=== PATIENT | male | born 1965 | race Caucasian/White ===

== ENCOUNTER 2020-04-24 13:53 | Observation (INO) ==
[~2020-04-24 13:53] MED LIST: Total Joint Mixture (50 ml) INTRAART ONE
[2020-04-24] MEDS ORDERED: CeFAZolin Syr 2,000MG/20 ML 2,000 MG/20 ML SYRINGE IVPB ONE (14:32)
[2020-04-24] MEDS ORDERED: Ringers Solution, Lactated 1,000 ML IVC SCH ×2 (14:45→22:09)
[2020-04-24] MEDS ORDERED: Famotidine 20 MG/2 ML VIAL IVP ONE (16:11)
[2020-04-24] MEDS ORDERED: Acetaminophen IV 1,000 MG/100 ML BAG IVPB ONE (16:11)
[2020-04-24] MEDS ORDERED: *HR* HYDROmorphone PF 0.5 MG/0.5 ML SYRINGE IVP PRN (17:28)
[2020-04-24] MEDS ORDERED: Ondansetron 4 MG/2 ML VIAL IVP ONE (17:28)
[2020-04-24] MEDS ORDERED: *HR* OxyCODONE Immed Rel 5 MG TABLET PO PRN (17:28)
[2020-04-24] MEDS ORDERED: *HR* Promethazine 25 MG/ML VIAL IVP PRN ×2 (17:28→22:09)
[2020-04-24] MEDS ORDERED: Ropivacaine/PF 0.5% 30 ML VIAL ONE (18:58)
[2020-04-24] MEDS ORDERED: *HR* FentaNYL (PF) 100 MCG/2 ML VIAL ONE ×2 (18:59→19:13)
[2020-04-24] MEDS ORDERED: *HR* Midazolam HCl 2 MG/2 ML VIAL ONE ×2 (18:59→19:12)
[2020-04-24] MEDS ORDERED: Vancomycin 1,000 MG VIAL ONE (19:22)
[2020-04-24] MEDS ORDERED: Ethanol\\Acetic Acid\\Na Ace\\Ben 1,000 ML IRRIG.SOLN IR ONE (19:22)
[2020-04-24] MEDS ORDERED: Lidocaine -MPF 2% 2 ML VIAL ONE (20:00)
[2020-04-24] MEDS ORDERED: Tranexamic Acid 1,000 MG/10 ML VIAL ONE (20:06)
[2020-04-24] MEDS ORDERED: Ondansetron 4 MG/2 ML VIAL IVP PRN (22:09)
[2020-04-24] MEDS ORDERED: *HR* Dextrose 50 % in Water (Vial) 50 ML VIAL IVP PRN (22:09)
[2020-04-24] MEDS ORDERED: Dextrose Gel 15 GM/37.5 ML TUBE PO PRN ×2 (22:09)
[2020-04-24] MEDS ORDERED: Naloxone 0.4 MG/ML INJ IVP PRN (22:09)
[2020-04-24] MEDS ORDERED: D5% in Water 1,000 ML IVC PRN (22:09)
[2020-04-24] MEDS ORDERED: MOM Conc 10 ML UD.LIQ PO PRN (22:09)
[2020-04-24] MEDS ORDERED: Sennosides 8.6 MG TABLET PO PRN (22:09)
[2020-04-24 22:32] LABS: Hematocrit 42.5 % (37.5-50.1); Hemoglobin 14.3 g/dL (12.9-16.9)
[2020-04-24] MEDS: Insulin LISPRO 300 UNITS/3 ML VIAL SQ SCH (23:34)
[2020-04-25] MEDS: CeFAZolin 2 GM/120 ML BAG IVPB SCH ×2 (00:01→06:11)
[2020-04-25] MEDS: *HR* OxyCODONE Immed Rel 5 MG TABLET PO PRN ×4 (01:17→23:43)
[2020-04-25] MEDS: HYDROcodone BIT/Homatropine 5 MG TABLET PO PRN ×2 (13:10→20:59)
[2020-04-25] MEDS: DilTIAZem CD (24hr) 120 MG CAP.ER.24H PO SCH ×3 (13:11→23:43)
[2020-04-25] MEDS: Multivit/Ca/Min/Fe/FA 1 TAB TABLET PO SCH (13:14)
[2020-04-25] MEDS: Insulin LISPRO 300 UNITS/3 ML VIAL SQ SCH ×4 (13:47→20:47)
[2020-04-25] MEDS: Ascorbic Acid 500 MG TABLET PO SCH (13:54)
[2020-04-25 14:08] LABS: Basophils % 0.6 %; Eosinophils # 0.1 K/mcL (0.0-0.6); Hematocrit 33.7 % (37.5-50.1); Immature Granulocytes % 0.2 % (0-4); Lymphocytes # 1.1 K/mcL (0.6-4.6); Lymphocytes % 16.5 %; Mean Corpuscular HGB Conc 33.8 g/dL (31.6-35.5); Mean Corpuscular Hemoglobin 31.3 pg (28.0-33.3); Mean Corpuscular Volume 92.6 fL (83.0-100.0); Monocytes # 0.6 K/mcL (0.0-1.3); Monocytes % 8.3 %; Neutrophils # 4.8 K/mcL (1.6-8.9); Platelet Count 187 K/mcL (140-400); Red Blood Count 3.64 M/mcL (4.19-5.50); Red Cell Distribution Width 11.9 % (11.5-14.5); Segmented Neutrophils % 72.4 %; White Blood Count 6.6 K/mcL (4.3-11.1)
[2020-04-25 14:09] LABS: Hemoglobin 11.4 g/dL (12.9-16.9)
[2020-04-25 14:26] LABS: BUN/Creatinine Ratio 16 (6-26); Blood Urea Nitrogen 13 mg/dL (6-20); Carbon Dioxide 20 mEq/L (23-29); Chloride 102 mEq/L (98-107); Glucose 120 mg/dL (70-105); Osmolality,Calculated 275 (280-300); Sodium 132 mEq/L (136-145); eGFR For African Americans > 60 (> 60); eGFR For Non-African Americans > 60 (> 60)
[2020-04-25] MEDS: Aspirin Enteric Coated 81 MG Tablet PO SCH (18:04)
[2020-04-26] MEDS: Ascorbic Acid 500 MG TABLET PO SCH ×3 (00:10→17:11)
[2020-04-26] MEDS: *HR* OxyCODONE Immed Rel 5 MG TABLET PO PRN ×4 (06:27→21:00)
[2020-04-26 09:21] LABS: Basophils % 0.5 %; Eosinophils % 0.5 %; Hematocrit 39.3 % (37.5-50.1); Immature Granulocytes % 0.4 % (0-4); Lymphocytes # 1.1 K/mcL (0.6-4.6); Lymphocytes % 13.5 %; Mean Corpuscular HGB Conc 33.6 g/dL (31.6-35.5); Mean Corpuscular Hemoglobin 30.6 pg (28.0-33.3); Mean Platelet Volume 10.1 fL (9.4-12.4); Monocytes # 0.8 K/mcL (0.0-1.3); Monocytes % 9.1 %; Neutrophils # 6.4 K/mcL (1.6-8.9); Platelet Count 219 K/mcL (140-400); Red Blood Count 4.32 M/mcL (4.19-5.50); Red Cell Distribution Width 11.9 % (11.5-14.5); White Blood Count 8.4 K/mcL (4.3-11.1)
[2020-04-26 09:23] LABS: Hemoglobin 13.2 g/dL (12.9-16.9)
[2020-04-26 09:30] LABS: BUN/Creatinine Ratio 12 (6-26); Blood Urea Nitrogen 9 mg/dL (6-20); Carbon Dioxide 25 mEq/L (23-29); Chloride 99 mEq/L (98-107); Glucose 135 mg/dL (70-105); Osmolality,Calculated 277 (280-300); Potassium 3.8 mEq/L (3.5-5.1); Sodium 133 mEq/L (136-145); eGFR For African Americans > 60 (> 60); eGFR For Non-African Americans > 60 (> 60)
[2020-04-26] MEDS: Aspirin Enteric Coated 81 MG Tablet PO SCH (10:11)
[2020-04-26] MEDS: DilTIAZem CD (24hr) 120 MG CAP.ER.24H PO SCH ×2 (10:13→20:58)
[2020-04-26] MEDS: Insulin LISPRO 300 UNITS/3 ML VIAL SQ SCH ×4 (10:42→21:57)
[2020-04-26] MEDS ORDERED: Isovue-370 500 ML BOTTLE IVP ONE (11:49)
[2020-04-26] MEDS: HYDROcodone BIT/Homatropine 5 MG TABLET PO PRN (14:36)
[2020-04-27 05:42] LABS: Hematocrit 37.5 % (37.5-50.1); Hemoglobin 12.8 g/dL (12.9-16.9)
[2020-04-27 07:43] VITALS: BP 148/87
[2020-04-27] MEDS: Ascorbic Acid 500 MG TABLET PO SCH (08:23)
[2020-04-27] MEDS: Aspirin Enteric Coated 81 MG Tablet PO SCH (08:23)
[2020-04-27] MEDS: DilTIAZem CD (24hr) 120 MG CAP.ER.24H PO SCH (08:23)
[2020-04-27] MEDS: Multivit/Ca/Min/Fe/FA 1 TAB TABLET PO SCH (08:23)
[2020-04-27] MEDS: Insulin LISPRO 300 UNITS/3 ML VIAL SQ SCH (08:24)
[2020-04-27] MEDS: *HR* OxyCODONE Immed Rel 5 MG TABLET PO PRN (08:24)
== END 2020-04-27 10:09 | disposition home or self-care (01) ==
LOC: SAMDAY 13:53 → 3NENU 13:53
PROVIDERS: ADMIT Orthopaedic Surgery; ATTEND Orthopaedic Surgery